=== PATIENT | male | born 1955 | race Hispanic/Latino ===

== ENCOUNTER 2018-03-18 05:45 | Day surgery (SDC) | payer OTHER ==
[~2018-03-18] VITALS: Ht 157.5 cm; Wt 95.3 kg
[~2018-03-18 05:45] MED LIST: AMLODIPINE BESYL5 MG PO; BACTRIM DS TAB1 EACH PO; CIPROFLOXACIN750 MG PO; DOCUSATE SODIU250 MG PO; DSS250 MG PO; ETODOLAC200 MG PO; HYDROCHLOROTH12.5 MG PO; HYDROCHLOROTHIA25 MG PO; MELOXICAM15 MG PO; NORCO 5-325 TA1 EACH PO; NORTRIPTYLINE H25 MG PO; OMEPRAZOLE20 MG PO; OXYCODONE HCL5 MG PO; SIMVASTATIN10 MG PO; TRIAMCINOLONE A15 G1 TOP; ULTRAM50 MG PO; XARELTO10 MG PO
[2018-03-18] MEDS ORDERED: LIPITOR20 MG PO (05:56)
--- NOTE | 2018-03-18 08:04 | NUR ---
03/18/18 0804 Tana Duarte 0683-PATIENT ARRIVED TO PACU ON 6L MASK O2 SAT 100% PATIENT NONAROUSABLE. RR EVEN. LEFT LEG DRESSING CDI. ICE APPLIED. PALPABLE PEDAL PULSE WARM GOOD CAP REFILL.
[2018-03-18] MEDS ORDERED: ULTRAM50 MG PO (08:57)
--- NOTE | 2018-03-18 10:21 | NUR ---
LE 1000: PT UP TO BR W/OFFICER STANDBY. PT AMBULATES WELL AND VOIDS. ADAMS, FROM NUCLEAR MEDICINE INTERPRETS FOR DC INSTRUCTIONS. DC INSTRUCTIONS GIVEN AND PATIENT VERBALIZES UNDERSTANDING. CALL REPORT GIVEN TO RN @ [facility] AND HER QUESTIONS ARE ANSWERED.
--- NOTE | 2018-03-23 07:11 | OR ---
[facility] [address], [place] [address] Signed DATE OF OPERATION: 03/18/2018 SURGEON: Jeremy Neil MD PREOPERATIVE DIAGNOSIS: Torn medial meniscus, left knee. POSTOPERATIVE DIAGNOSIS: Torn medial meniscus, left knee with areas of grade 4 outer bridge changes over the weightbearing portion of the medial femoral condyle and the reciprocal portion of the medial tibial plateau. PROCEDURE: Knee arthroscopy with partial medial meniscectomy. ANESTHESIA: General. SPECIMENS AND COMPLICATIONS: There were no specimens or complications. TOURNIQUET TIME: About 20 minutes. WHAT WAS DONE: The patient was taken to the operating room. After anesthesia was induced and airway secured, the patient was positioned, prepped and draped in the routine sterile fashion. The leg was exsanguinated with an Esmarch bandage. Pneumatic tourniquet was inflated to 300 mmHg pressure. The outflow cannula was placed superolaterally and the standard anterolateral portal was created. An anteromedial portal was created using transillumination and localization with a spinal needle. We then performed a diagnostic arthroscopy. The suprapatellar pouch had a mild synovitis. Patellofemoral joint has some areas of grade 2 chondral change house attendant the patella as well as via femoral trochlea. The lateral recess was unremarkable. Lateral compartment had some scuffing of the lateral femoral condyle, but there was no exposed bone on the lateral femoral condyle or the lateral tibial plateau. Probing of the lateral meniscus did not reveal any tears. Intercondylar notch revealed an intact ACL. We then maneuvered the scope into the medial compartment where there was a horizontal Electronically Signed By: JEREMY NEIL MD 03/23/18 0711 PATIENT NAME: TEO BARBA OPERATIVE REPORT DATE OF : 55 REPORT #: [id number] PHYSICIAN: JEREMY NEIL MD PCP: GEOVANNA DENG MD REPORT IS CONFIDENTIAL AND NOT TO BE RELEASED WITHOUT AUTHORIZATION [facility] [address], [place] [address] Signed tear of the posterior horn of the medial meniscus. There was also an area of about 8 x 7 mm on the medial most portion of the medial femoral condyle in the weightbearing area that was completely devoid of articular cartilage and then had a transitional area of grade 3 outer bridge change. There is a reciprocal area of exposed tibial subchondral bone on the tibial plateau. We then placed the basket forceps through the anteromedial portal and completed the meniscal tear. We then used the motorized shaver to remove all of the fragments from the knee joint and debride and trim the meniscectomy. The knee was copiously irrigated and drained. The portals were closed and sterile dressings applied. He was awakened and taken to recovery room where he arrived in stable condition. Counts were correct and antibiotic protocols were followed. MD JOHN PhillipsB/MODL /[id number] Copies: ~ Electronically Signed By: JEREMY NEIL MD 03/23/18 0711 PATIENT NAME: TEO BARBA OPERATIVE REPORT DATE OF : 55 REPORT #: [id number] PHYSICIAN: JEREMY NEIL MD PCP: GEOVANNA DENG MD REPORT IS CONFIDENTIAL AND NOT TO BE RELEASED WITHOUT AUTHORIZATION
== END 2018-03-18 10:10 | disposition home or self-care (01) ==
LOC: DS 05:45 → OPS 05:45 → DS 06:45 → OPS 10:10
PROVIDERS: Orthopaedic Surgery
PROC: 0SBD4ZZ Excision of Left Knee Joint, Percutaneous Endoscopic Approach (ICD-10-PCS; principal; 2018-03-18 06:45)
DX: S83.242A Other tear of medial meniscus, current injury, left knee, initial encounter (principal); I10 Essential (primary) hypertension; Z79.891 Long term (current) use of opiate analgesic; Z79.899 Other long term (current) drug therapy; X58.XXXA Exposure to other specified factors, initial encounter
CPT/HCPCS: 01400; J0690; J1885; J2250; J2405; J2704; J2765; J3010; J3301; J7120